=== PATIENT | male | born 1945 | race Caucasian/White ===

== ENCOUNTER 2019-08-06 17:29 | Inpatient (IN) | payer OTHER ==
[~2019-08-06] VITALS: Ht 144.8 cm; Wt 66.7 kg
[2019-08-06 17:59] VITALS: BP_SYST 133
[2019-08-06 19:43] LABS: BASOPHILS % (AUTO) 0.4 % (0.0-2.0); EOSINOPHILS # (AUTO) 0.1 K/uL (0.0-0.4); EOSINOPHILS % (AUTO) 1.5 % (0.0-4.0); LYMPHOCYTES % (AUTO) 20.2 % (20.5-51.5); MEAN CORPUSCULAR HEMOGLOBIN 26 pg (27-31); MEAN CORPUSCULAR HGB CONC 32 % (32-36); MEAN CORPUSCULAR VOLUME 82 fL (79.0-98.0); MONOCYTES # (AUTO) 0.4 K/uL (0.0-1.0); MONOCYTES % (AUTO) 7.4 % (1.7-9.3); NEUTROPHILS # (AUTO) 3.5 K/uL (1.8-7.7); NEUTROPHILS % (AUTO) 70.5 % (40.0-70.0); PLATELET COUNT (AUTO) 111 K/uL (130-430); RED BLOOD CELL COUNT(AUTO) 4.28 MIL/uL (4.2-6.2); WHITE BLOOD COUNT (AUTO) 4.9 K/uL (4.8-10.8)
[2019-08-06 19:45] LABS: ANION GAP 6 (5-15); CALCIUM 8.5 mg/dL (8.4-11.0); CHLORIDE 103 mmol/L (98-107); CREATININE 0.64 mg/dL (0.55-1.30); GLUCOSE 217 mg/dL (70-99); POTASSIUM 3.8 mmol/L (3.5-5.1); SODIUM SERUM 139 mmol/L (136-145); UREA NITROGEN, BLOOD 16 mg/dL (8-21)
[2019-08-06 19:51] LABS: ALANINE AMINOTRANSFERASE 45 U/L (12-78); ALBUMIN 3.2 g/dL (3.4-4.8); ASPARTATE AMINOTRANSFERASE 33 U/L (10-37); TOTAL BILIRUBIN 0.4 mg/dL (0.0-1.0)
[2019-08-06] MEDS ORDERED: NACL 0.9% 1,000 ML IV ONE (20:31)
[2019-08-06 20:46] LABS: INR 1.1 (0.80-1.20); PROTHROMBIN TIME 10.6 SECS (9.5-12.5)
[2019-08-06 21:35] LABS: BILIRUBIN,URINE NEGATIVE (NEGATIVE); BLOOD, URINE NEGATIVE (NEGATIVE); CLARITY/URINE CLEAR (CLEAR); COLOR,URINE YELLOW (YELLOW); GLUCOSE,URINE NEGATIVE (NEGATIVE); KETONES,URINE NEGATIVE (NEGATIVE); LEUKOCYTE ESTERASE ,URINE NEGATIVE (NEGATIVE); NITRITE, URINE NEGATIVE (NEGATIVE); PH,URINE 6.5 (5.0-8.0); PROTEIN URINE NEGATIVE (NEGATIVE); UROBILINOGEN,URINE 0.2 (0.2-1.0)
[2019-08-06] MEDS ORDERED: VANCOMYCIN HCL 1,000 MG in NS 250 ML IV ONE (22:00)
[2019-08-06] MEDS ORDERED: VANCOMYCIN HCL 1000 MG/VIAL IV ONE (22:22)
[2019-08-06] MEDS ORDERED: ASA81 PO (22:28)
[2019-08-06] MEDS ORDERED: LIP40 PO (22:28)
[2019-08-06] MEDS ORDERED: PYRI25TA4 PO (22:28)
[2019-08-06] MEDS ORDERED: APRE30TA2 PO (22:28)
[2019-08-06] MEDS ORDERED: FLUO118.6 TP (22:28)
[2019-08-06] MEDS ORDERED: AMLO2.5T2 PO (22:28)
[2019-08-06] MEDS ORDERED: METR45GE5 TP (22:28)
[2019-08-06] MEDS ORDERED: CALC60OI5 TP (22:28)
[2019-08-06] MEDS ORDERED: METF-509 PO (22:28)
[2019-08-06] MEDS ORDERED: MUPI15CR12 TP (22:36)
[2019-08-06] MEDS ORDERED: DOXY100C PO (22:36)
[2019-08-06] MEDS ORDERED: CEPH-568 PO (22:36)
[2019-08-06 23:26] VITALS: BP_SYST 135
[2019-08-07] MEDS ORDERED: DEXTROSE 50% JECT 50 ML DISP.SYRIN IVP PRN (06:30)
[2019-08-07] MEDS ORDERED: INSULIN REGULAR, HUMAN 100 UNITS/ML, 10 ML VIAL (humuLIN R) SUBCUT PRN (06:30)
[2019-08-07] MEDS: VANCOMYCIN HCL 1,000 MG in NS 250 ML IV SCH ×2 (10:04→22:14)
[2019-08-07] MEDS: ATORVASTATIN 20 MG TABLET PO SCH (10:04)
[2019-08-07] MEDS: ASPIRIN 81 MG TAB.CHEW PO SCH (10:04)
[2019-08-07] MEDS: amLODIPine BESYLATE 5 MG TABLET PO SCH (10:05)
[2019-08-07 13:08] VITALS: BP_SYST 116
[2019-08-07 16:14] VITALS: BP_SYST 119
[2019-08-08] VITALS: BP_SYST 132
[2019-08-08 08:00] VITALS: BP_SYST 135
[2019-08-08] MEDS: ATORVASTATIN 20 MG TABLET PO SCH (09:11)
[2019-08-08] MEDS: ASPIRIN 81 MG TAB.CHEW PO SCH (09:11)
[2019-08-08] MEDS: VANCOMYCIN HCL 1,000 MG in NS 250 ML IV SCH ×2 (09:11→21:02)
[2019-08-08] MEDS: amLODIPine BESYLATE 5 MG TABLET PO SCH (09:11)
[2019-08-08 12:09] VITALS: BP_SYST 136
[2019-08-08 16:37] VITALS: BP_SYST 115
[2019-08-08 20:00] VITALS: BP_SYST 124
[2019-08-09 00:32] VITALS: BP_SYST 131
[2019-08-09 08:10] VITALS: BP_SYST 106
[2019-08-09] MEDS: VANCOMYCIN HCL 1,000 MG in NS 250 ML IV SCH (08:13)
[2019-08-09] MEDS: ASPIRIN 81 MG TAB.CHEW PO SCH (08:14)
[2019-08-09] MEDS: amLODIPine BESYLATE 5 MG TABLET PO SCH (08:14)
[2019-08-09] MEDS: ATORVASTATIN 20 MG TABLET PO SCH (08:14)
[2019-08-09] MEDS ORDERED: TRIAMCINOLONE ACETONIDE 0.025% 80 GM CREAM.GM. TP SCH (09:00)
[2019-08-09] MEDS ORDERED: TRIAMCINOLONE ACETONIDE 0.025% 15 GM CREAM.GM. TP SCH (09:01)
[2019-08-09 12:30] VITALS: BP_SYST 108
== END 2019-08-09 14:00 | DRG 603 ==
LOC: SED 17:29 → SMU 22:12
PROVIDERS: ADMIT Internal Medicine Hospice and Palliative Medicine; ATTEND Internal Medicine Hospice and Palliative Medicine
DX: L03.115 Cellulitis of right lower limb (principal); L03.116 Cellulitis of left lower limb; E78.5 Hyperlipidemia, unspecified; L40.9 Psoriasis, unspecified; E78.00 Pure hypercholesterolemia, unspecified; E11.9 Type 2 diabetes mellitus without complications; I10 Essential (primary) hypertension; Z95.1 Presence of aortocoronary bypass graft; Z95.0 Presence of cardiac pacemaker; Z88.8 Allergy status to other drugs, medicaments and biological substances; Z79.899 Other long term (current) drug therapy
CPT/HCPCS: 36415; 80053; 80202-TC; 81003; 82962; 83605; 85025; 85610-TC; 85730-TC; 87040-TC; 96365; 96366; 99285; J1815; J3370; J7050